=== PATIENT | male | born 1955 | race Caucasian/White ===

== ENCOUNTER 2022-10-06 01:41 | Emergency (ER) | payer MEDICARE, OTHER ==
[2022-10-06] MEDS: Cyclobenzaprine 10 MG Tab PO ONE (02:45)
[2022-10-06] MEDS: diphenhydrAMINE 25 MG Cap PO ONE (02:45)
[2022-10-06] MEDS: Ketorolac 30 MG/ML SDV IM ONE (02:47)
[2022-10-06] MEDS: Take Home: Cyclobenzaprine 10 MG Tab, 4 Tab Pack PO ONE (02:55)
== END 2022-10-06 03:10 | disposition home or self-care (01) ==
LOC: LL.ED 01:41
DX: M54.16 Radiculopathy, lumbar region (principal); G89.29 Other chronic pain; I16.0 Hypertensive urgency; Z88.2 Allergy status to sulfonamides; Z88.8 Allergy status to other drugs, medicaments and biological substances; Z87.891 Personal history of nicotine dependence; X50.0XXA Overexertion from strenuous movement or load, initial encounter; Y92.59 Other trade areas as the place of occurrence of the external cause
CPT/HCPCS: 96372; 99283; A9270; J1885

== ENCOUNTER 2022-10-09 14:12 | Emergency (ER) | payer MEDICARE, OTHER ==
[2022-10-09] MEDS ORDERED: Sodium Chloride 0.9% 10 ML Syringe FLUSH PRN ×2 (14:32→18:21)
[2022-10-09] MEDS: Sodium Chloride 0.9% 1,000 ML IV ONE ×2 (14:51→16:09)
[2022-10-09 15:14] LABS: ANION GAP 15.1 meq/L (7-15)
[2022-10-09] MEDS: Labetalol 20 MG/4 ML Syringe IVPUSH ONE ×3 (15:14→17:31)
[2022-10-09] MEDS: Sodium Chloride 3% 500 ML IV SCH (16:09)
[2022-10-09] MEDS: cloNIDine 0.1 MG Tab PO ONE (16:12)
[2022-10-09] MEDS: LORazepam 2 MG/ML SDV IVPUSH ONE (16:55)
[2022-10-09 19:10] VITALS: BP 183/110; PULSE 88
== END 2022-10-09 17:50 ==
LOC: LL.ED 14:12
DX: E87.1 Hypo-osmolality and hyponatremia (principal); R33.9 Retention of urine, unspecified; D72.829 Elevated white blood cell count, unspecified; I10 Essential (primary) hypertension; Z88.2 Allergy status to sulfonamides; Z88.8 Allergy status to other drugs, medicaments and biological substances
CPT/HCPCS: 36415; 51702; 80053; 81001; 83605; 83735; 85025; 96361; 96374; 96375; 96376; 99284; 99285-25; A9270-GY; J2060; J3490; J7030; J7040

== ENCOUNTER 2023-03-23 23:13 | Emergency (ER) | payer MEDICARE, OTHER | END 2023-03-24 00:43 | disposition home or self-care (01) | LOC: LL.ED 23:13 | DX: K59.09 Other constipation (principal); Z88.2 Allergy status to sulfonamides; Z88.8 Allergy status to other drugs, medicaments and biological substances | CPT/HCPCS: 74018; 99283 ==